=== PATIENT | female | born 2005 | race Two or more races ===

== ENCOUNTER 2024-07-18 06:25 | Emergency (ER) | payer OTHER ==
[~2024-07-18] VITALS: Ht 152.4 cm; Wt 47.5 kg
[2024-07-18 07:20] LABS: Basophils # (auto) 0 10 ^3/uL (0-0.2); Basophils % (auto) 0.4 % (0.0-2.0); Eosinophils # (auto) 0.1 10 ^3/uL (0-0.8); Hematocrit 38.2 % (36.0-46.0); Hemoglobin 13.2 g/dL (12.2-16.2); Lymphocytes # (auto) 3.8 10 ^3/uL (0.4-5.4); Lymphocytes % (auto) 37.3 % (10.0-50.0); Mean Corpuscular Hgb Conc. 34.4 g/dL (32.0-36.0); Mean Corpuscular Volume 90.2 fL (80.0-100.0); Monocytes # (auto) 0.8 10 ^3/uL (0-1.3); Monocytes % (auto) 7.5 % (0.0-12.0); Neutrophils # (auto) 5.5 10 ^3/uL (1.6-8.6); Neutrophils % (auto) 53.8 % (37.0-80.0); Nucleated Red Blood Cells % 0.1 %; Platelet Count (auto) 274 10^3/uL (140-450); Red Blood Cells 4.24 10^6/uL (4.0-5.20); Red Cell Distribution Width 13.5 % (11.8-14.3); White Blood Cell 10.3 10^3/uL (4.4-10.8)
[2024-07-18 07:23] VITALS: BP 98/61; TEMP 97.8
[2024-07-18] MEDS: HYDROcodone-ACET 5/325MG TAB PO ONE (07:24)
[2024-07-18 07:25] VITALS: PULSE 74; RESP 15; O2SAT 99
[2024-07-18 07:36] LABS: Chloride 104 mmol/L (98-107); Potassium 3.5 mmol/L (3.5-5.1); Sodium 140 mmol/L (136-145)
[2024-07-18 07:37] LABS: Anion Gap 12 (5-15); Carbon Dioxide 24 mmol/L (20-30)
[2024-07-18 07:38] LABS: Calcium 10.1 mg/dL (8.7-10.4)
[2024-07-18 07:42] LABS: Glucose 104 mg/dL (74-106)
[2024-07-18 07:43] LABS: BUN/Creatinine Ratio 25.3 (10.0-20.0); Blood Urea Nitrogen 21 mg/dL (9-23)
[2024-07-18 07:52] LABS: Urine Bacteria FEW /hpf (None Seen); Urine Blood 2+ /uL (Negative); Urine Clarity Turbid (Clear); Urine Color Light-Yellow (Yellow); Urine Hyaline Cast FEW /lpf (0 - 2); Urine Mucus FEW (None Seen); Urine Protein, UAD TRACE (Negative); Urine Specific Gravity 1.033 (1.001-1.035); Urine Urobilinogen Normal (Negative); Urine WBC 6 /hpf (0 - 5)
[2024-07-18] MEDS ORDERED: IBU600T PO (08:14)
== END 2024-07-18 08:23 | disposition home or self-care (01) ==
LOC: ER 06:25
DX: N20.0 Calculus of kidney (principal); R10.2 Pelvic and perineal pain
CPT/HCPCS: 36415; 80048; 81001; 84702; 85025